=== PATIENT | male | born 1975 | race Hispanic/Latino ===

== ENCOUNTER 2017-04-11 09:40 | Outpatient (CLI) | payer BC ==
--- NOTE | 2017-04-11 13:44 | RAD ---
RIGHT SHOULDER 3 VIEWS: HISTORY: Right shoulder pain. COMPARISON: Clavicle radiograph 2016. FINDINGS: There is no acute fracture or malalignment. Mild hypertrophic osteoarthritic disease at the acromio clavicular joint. Acromioclavicular and coracoclavicular alignment is normal. There is subchondral cyst formation in the greater tuberosity. Visualized ribs are normal. IMPRESSION: Mild osteoarthritic disease. No acute fracture or malalignment. POS: [facility]
--- NOTE | 2017-04-11 13:45 | RAD ---
LEFT HUMERUS TWO VIEWS: HISTORY: M79.622, left upper arm pain. M25.511, acute pain, right shoulder. COMPARISON: None. FINDINGS: There is no acute fracture or malalignment. Moderate degenerative disease of the elbow. IMPRESSION: 1. No acute fracture. 2. Old left clavicular fracture. POS: [facility]
--- NOTE | 2017-04-11 14:06 | RAD ---
LEFT FOREARM 2 VIEWS: Date: 04/11/17 HISTORY: Acute pain. COMPARISON: None. 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 Subchondral cyst formation is noted o f the medial margin of the lunate as well as the lateral margin of triquetrum. IMPRESSION: 1. No acute fracture or malalignment. 2. Degenerative changes as described. POS: [facility]
== END 2017-04-11 09:41 | disposition home or self-care (01) ==
LOC: SCSRAD 09:40
PROVIDERS: ATTEND Nurse Practitioner Family
DX: M79.662 Pain in left lower leg (principal); M25.511 Pain in right shoulder; M19.011 Primary osteoarthritis, right shoulder

== ENCOUNTER 2018-02-03 08:57 | Outpatient (CLI) | payer BC ==
--- NOTE | 2018-02-03 11:06 | CT ---
ABDOMEN CT WITH CONTRAST PELVIC CT WITH CONTRAST: HISTORY: Chronic diarrhea x 15 years. Blood in stools. COMPARISON: None. TECHNIQUE: Abdomen and pelvic CT performed with IV contrast. Enteric contrast was also administered. Coronal r eformatted images were submitted for interpretation. FINDINGS: ABDOMEN CT: Lung bases are clear. Normal height size. No pericardial effusion. The descending thoracic aorta a nd abdominal aorta have a normal caliber. No periaortic fat stranding. Gallbladder is unremarkable. Intra- and extrahepatic portal vein is patent. Liver, spleen, pancreas, and adrenal glands have appropriate enhancement. No gastrohepatic or retrocrural periportal lymphadenopathy. No mesenteric mass, lymphadenopathy, free air, or free fluid. Symmetric enhancement of the kidneys. Bilaterally, no obstructive uropathy. Gastric mucosa, duodenum, and multiple normal-caliber small bowel loops are noted. Ileocecal junctio n is normal. Normal-caliber appendix. Scattered fecal material in a nondistended, nondilated colon. Nonspecific mucosal thickening of the left hemicolon, felt to be due to inadequate distention. Occ asional diverticulum. No diverticulitis. Given the patient's history, colonoscopy should be perform ed. PELVIC CT: No mass, lymphadenopathy, free air, or free fluid. No calcifications in the urinary bladder. No lytic or blastic lesions within the osseous structures. IMPRESSION: 1. No acute abnormality in the abdomen or pelvis. 2. Colonic mucosal changes as described above. Nonemergent colonoscopy is recommended given the pat ient's history. POS: [facility]
[2018-02-03] MEDS ORDERED: Iopamidol 370 76% 100 ML VIAL ONE (13:52)
== END 2018-02-03 08:58 | disposition home or self-care (01) ==
LOC: CT 08:57
PROVIDERS: ATTEND Internal Medicine Gastroenterology
DX: K52.9 Noninfective gastroenteritis and colitis, unspecified (principal); K62.5 Hemorrhage of anus and rectum; R10.84 Generalized abdominal pain; F10.10 Alcohol abuse, uncomplicated; K63.89 Other specified diseases of intestine; Z86.010 Personal history of colon polyps
CPT/HCPCS: 74177

== ENCOUNTER 2019-02-23 03:52 | Emergency (ER) | payer BC ==
[2019-02-23 04:38] LABS: #Eosinphils 0.2 thou/uL (0.0-0.7); #Lymphocytes 0.8 thou/uL (1.20-3.40); #Monocytes 0.4 thou/uL (0.11-0.59); #Neutrophils 4.7 thou/uL (1.40-6.50); %Basophils 0.7 % (0.0-1.0); %Eosinophils 3.5 % (0.0-10.0); %Lymphocytes 13.7 % (21.0-51.0); %Monocytes 5.8 % (0.0-10.0); %Neutrophils 76.3 % (42.0-75.0); Hemoglobin 15.9 g/dL (14.0-18.0); Mean Corpuscular HGB CONC 34.5 g/dL (32.0-36.0); Mean Corpuscular Hemoglobin 33.5 pg (27.0-31.0); Mean Corpuscular Volume 97.2 fL (78.0-98.0); Mean Platelet Volume 7.1 fL (7.4-10.4); Platelet Count 216 thou/uL (130-400); RBC Distribution Width 11.8 % (11.5-14.5); Red Blood Cell (RBC) Count 4.75 mill/uL (4.70-6.10); White Blood Cell (WBC) Count 6.2 thou/uL (4.8-10.8)
[2019-02-23 04:46] LABS: Acetaminophen Less than 6.0 mcg/mL (10.0-30.0); Alcohol Less than 10 mg/dL (Less than 10); Salicylate Less than 8.0 mg/dL (15.0-30.0)
[2019-02-23 04:55] LABS: ALT (SGPT) 28 U/L (8-55); AST (SGOT) 27 U/L (5-34); Albumin 4.2 g/dL (3.5-5.0); Alkaline Phosphatase 91 U/L (40-150); Anion Gap 12 mmol/L (10-20); BUN (Urea Nitrogen) 19 mg/dL (8.9-20.6); Bilirubin, Total 0.2 mg/dL (0.2-1.2); Calc. Creatinine Clearance 0 mL/min (70-130); Calcium 8.9 mg/dL (7.8-10.44); Carbon Dioxide 27 mmol/L (22-29); Chloride 101 mmol/L (98-107); Estimated GFR-MDRD 67; Globulin 2.8 g/dL (2.4-3.5); Glucose 101 mg/dL (70-105); Sodium 136 mmol/L (136-145)
--- NOTE | 2019-02-28 00:35 | EKG ---
Test Reason : Blood Pressure : / mmHG Vent. Rate : 103 BPM Atrial Rate : 103 BPM P-R Int : 150 ms QRS Dur : 092 ms QT Int : 342 ms P-R-T Axes : 053 062 030 degrees QTc Int : 448 ms Sinus tachycardia Otherwise normal ECG Confirmed by ADRIAN ANGEL ([id number]), copy editor SHIRA VAZQUEZ ([id number] on 02/28/2019 12:35:14 AM Referred By: Confirmed By:ADRIAN ANGEL
== END 2019-02-23 05:15 | disposition home or self-care (01) ==
LOC: ERS 03:52
DX: G40.909 Epilepsy, unspecified, not intractable, without status epilepticus (principal); I10 Essential (primary) hypertension; F17.220 Nicotine dependence, chewing tobacco, uncomplicated; Z79.899 Other long term (current) drug therapy
CPT/HCPCS: 36415; 80053; 80185; 80307; 85025; 93005

== ENCOUNTER 2019-02-25 09:49 | Outpatient (CLI) | payer BC ==
--- NOTE | 2019-02-25 10:34 | RAD ---
EXAM: 2 views of the abdomen HISTORY: Diarrhea and generalized abdominal pain COMPARISON: None FINDINGS: 2 views of the abdomen shows a nonspecific, nonobstructive bowel gas pattern. No free air o r air-fluid levels are seen on upright examination. No suspicious calcifications are seen. The bones are unremarkable. IMPRESSION: No evidence of bowel obstruction.
== END 2019-02-25 09:50 | disposition home or self-care (01) ==
LOC: SCSRAD 09:49
PROVIDERS: ATTEND Nurse Practitioner Family
DX: R10.84 Generalized abdominal pain (principal)
CPT/HCPCS: 74019

== ENCOUNTER 2020-09-12 15:25 | Emergency (ER) | payer BC ==
[2020-09-12 23:42] LABS: SARS-CoV-2 PCR by NAA Not Detected (NotDetected)
== END 2020-09-12 16:11 | disposition home or self-care (01) ==
LOC: ERS 15:25
DX: J34.89 Other specified disorders of nose and nasal sinuses (principal); I10 Essential (primary) hypertension; F17.210 Nicotine dependence, cigarettes, uncomplicated; F17.220 Nicotine dependence, chewing tobacco, uncomplicated; Z20.822 Contact with and (suspected) exposure to COVID-19
CPT/HCPCS: 87635; 99283; U0003; U0005

== ENCOUNTER 2024-05-14 10:56 | Outpatient (CLI) | payer BC | END 2024-05-14 10:57 | disposition home or self-care (01) | LOC: BICRAD 10:56 | PROVIDERS: ATTEND Family Medicine | DX: M79.671 Pain in right foot (principal); M77.31 Calcaneal spur, right foot ==